=== PATIENT | female | born 1975 | race Caucasian/White ===

== ENCOUNTER → 2017-01-01 | Outpatient (CLI) | payer BC | END | disposition home or self-care (01) | LOC: RADUSWWP 12:31 | PROVIDERS: ATTEND Psychiatry & Neurology Neurology | DX: G57.91 Unspecified mononeuropathy of right lower limb (principal) | CPT/HCPCS: 93923 ==

== ENCOUNTER → 2018-08-25 | Outpatient (CLI) | payer BC ==
--- NOTE | 2018-08-25 11:28 | MM ---
Reason for exam: screening (asymptomatic). Last mammogram was performed 2 years and 9 months ago. History: Family history of breast cancer in sister at age 50 and breast cancer in mother at age 40. Physical Findings: A clinical breast exam by your physician is recommended on an annual basis and results should be correlated with mammographic findings. MG 3D Screening Mammo W/Cad Bilateral CC and MLO view(s) were taken. Prior study comparison: December 05, 2015, bilateral MG 3d diag mammo w/cad [place]. The breast tissue is extremely dense which could obscure a lesion on mammography. Finding: There is a 9 mm circumscribed round mass located 5 cm from the nipple in the upper outer quadrant, middle position of the left breast, probable new cyst but needs ultrasound. There is a chronic nodularity bilaterally, known cyst 2016 ultrasound. ASSESSMENT: Incomplete: need additional imaging evaluation, BI-RAD 0 RECOMMENDATION: Ultrasound of the left breast. [facility] will attempt to contact patient to return for ultrasound.
== END | disposition home or self-care (01) ==
LOC: RADMAMWWP 06:54
PROVIDERS: ATTEND Family Medicine
DX: Z12.31 Encounter for screening mammogram for malignant neoplasm of breast (principal)
CPT/HCPCS: 77063; 77067

== ENCOUNTER → 2018-08-27 | Outpatient (CLI) | payer BC ==
--- NOTE | 2018-08-27 08:43 | USB ---
Reason for exam: additional evaluation requested from abnormal screening. History: Family history of breast cancer in sister at age 50 and breast cancer in mother at age 40. Physical Findings: Nurse did not find any significant physical abnormalities on exam. US Breast Workup Limited LT Left limited breast ultrasound including focal area of concern, retroareolar and axilla demonstrates a 1.0 x 0.5 x 0.5cm cystic cluster at 1 o'clock and a 0.8 x 0.4 x 1.0cm cystic lesion at 2 o'clock. These results were verbally communicated with the patient and result sheet given to the patient on 08/27/18. ASSESSMENT: Benign, BI-RAD 2 RECOMMENDATION: Return to routine screening mammogram schedule for both breasts.
== END ==
LOC: RADUSWWP 07:33
PROVIDERS: ATTEND Family Medicine
DX: R92.8 Other abnormal and inconclusive findings on diagnostic imaging of breast (principal)

== ENCOUNTER → 2021-01-16 | Outpatient (CLI) | payer BC ==
--- NOTE | 2021-01-16 10:08 | US ---
EXAMINATION TYPE: US renal artery duplex complete DATE OF EXAM: 01/16/2021 COMPARISON: NONE CLINICAL HISTORY: I70.1 renal artery stenosis. MEASUREMENTS: RENAL SIZE: Rt Kidney: 11.0 x 5.1 x 6.6 cm Lt Kidney: 10.0 x 5.3 x 5.6 cm RESISTANCE INDEX Right: 0.60 Left: 0.57 RA/AO RATIO (< 3.5 ) Right: 2.1 Left: 2.7 RA VELOCITY ( < 180 cm/s) Right: 174 Left: 220 Aorta and renal unremarkable. Mildly elevated left renal artery velocity. Good upstroke on segmentals at renal hilum. IMPRESSION: 1. Renal arterial system as visualized appears unremarkable. Velocities however are somewhat elevated , more so on the left. Consider additional evaluation such as with MRA to evaluate for left renal art debi stenosis.
== END | disposition home or self-care (01) ==
LOC: RADUSWWP 08:30
PROVIDERS: ATTEND Family Medicine
DX: I70.1 Atherosclerosis of renal artery (principal)
CPT/HCPCS: 93975

== ENCOUNTER → 2021-12-24 | Outpatient (CLI) | payer BC ==
--- NOTE | 2021-12-25 15:31 | MM ---
Reason for Exam: Screening (asymptomatic). Last mammogram was performed 3 year(s) and 4 month(s) ago. Patient History: Menarche at age 11. First Full-Term at age 16. Sister had breast cancer, age 50. Mother had breast cancer, age 40. Last menstrual period: 12/13/2021 Risk Values: Nany 5 year model risk: 4.4%. NCI Lifetime model risk: 36.8%. Prior Study Comparison: 12/05/2015 Bilateral Diagnostic Mammogram, [facility]. 08/25/2018 Bilateral Screening Mammogram, [facility]. Tissue Density: The breast tissue is heterogeneously dense. This may lower the sensitivity of mammography. Findings: Analyzed By CAD. There is no suspicious group of microcalcifications or new suspicious mass in either breast. Overall Assessment: Negative, BI-RAD 1 Management: Screening Mammogram of both breasts in 1 year. A clinical breast exam by your physician is recommended on an annual basis and results should be correlated with mammographic findings. Electronically signed and approved by: Aldo Jeffries DO
== END | disposition home or self-care (01) ==
LOC: RADMAMWWP 08:01
PROVIDERS: ATTEND Obstetrics & Gynecology Obstetrics
DX: Z12.31 Encounter for screening mammogram for malignant neoplasm of breast (principal); Z80.3 Family history of malignant neoplasm of breast
CPT/HCPCS: 77063; 77067

== ENCOUNTER → 2022-01-03 | Outpatient (CLI) | payer BC ==
[2022-01-03 22:54] LABS: Basophils # (A) 0.08 X 10*3/uL (0.00-0.10); Basophils % (A) 0.7 %; Eosinophils # (A) 0.17 X 10*3/uL (0.04-0.35); Eosinophils % (A) 1.6 %; HCT 43.6 % (37.2-46.3); Immature Grans, Automated 0.5 %; Lymphocytes # (A) 2.64 X 10*3/uL (0.90-5.00); Lymphocytes % (A) 24.4 %; MCH 28.9 pg (27.0-32.0); MCHC 32.1 g/dL (32.0-37.0); MCV 89.9 fL (80.0-97.0); Mean Platelet Volume 9.9 fL (9.5-12.2); Monocytes # (A) 0.78 X 10*3/uL (0.20-1.00); Monocytes % (A) 7.2 %; NRBC Per 100 WBC 0 /100 WBCS (0.0-0.0); Neutrophils # (A) 7.12 X 10*3/uL (1.80-7.70); Neutrophils % (A) 65.6 %; Platelet Count 331 X 10*3/uL (140-440); RBC 4.85 X 10*6/uL (4.10-5.20); WBC 10.84 X 10*3/uL (4.50-10.00)
== END | disposition home or self-care (01) ==
LOC: LABPAT 13:40
PROVIDERS: ATTEND Obstetrics & Gynecology Obstetrics
DX: Z01.818 Encounter for other preprocedural examination (principal); N92.0 Excessive and frequent menstruation with regular cycle
CPT/HCPCS: 85025; 93005

== ENCOUNTER 2022-01-20 09:40 | Day surgery (SDC) | payer BC ==
[2022-01-16 15:57] VITALS: BMI 23.0
[~2022-01-20 09:40] MED LIST: DEXAMETHASONE SOD PHOSPHATE 4 MG/ML 1 ML VIAL IV ONE; HYDROmorphone 0.5 MG/0.5 ML SYRINGE IVP PRN; LACTATED RINGERS 1,000 ML IV SCH; LIDOCAINE 1% (10MG/ML) FOR IV START INTRADERMA PRN; ONDANSETRON 4 MG/2 ML VIAL IVP ONE; Pre Op ABX Message 1 EACH MISC MISCELLANE ONE; SCOPOLAMINE 1 MG/72 HR PATCH TRANSDERM ONE
[2022-01-20] MEDS ORDERED: PROPOFOL 10 MG/ML 20 ML VIAL IV ONE (12:04)
[2022-01-20] MEDS ORDERED: fentaNYL (PF) 50 MCG/ML 2 ML AMP ONE (12:04)
[2022-01-20] MEDS ORDERED: LIDOCAINE 2% INJ 20 MG/ML (2 ML VIAL) ONE (12:04)
[2022-01-20] MEDS ORDERED: KETOROLAC 15 MG/ML 1 ML VIAL ONE (12:04)
[2022-01-20] MEDS ORDERED: MIDAZOLAM 2 MG/2 ML VIAL ONE (12:04)
[2022-01-20] MEDS ORDERED: SILVER NITRATE APPLICATOR 1 EACH STICK..EA. TOPICAL ONE (12:48)
--- NOTE | 2022-01-20 13:00 | P.OP ---
Date of Procedure: 01/20/22 Preoperative Diagnosis: Heavy menstrual bleeding Postoperative Diagnosis: Same Procedure(s) Performed: Hysteroscopy, dilation and curettage, failed endometrial ablation secondary to cavity size Anesthesia: MAC Surgeon: Alem Richard Estimated Blood Loss (ml): 5 IV fluids (ml): 600 Urine output (ml): 100 Pathology: other (Endometrial curettings) Condition: stable Disposition: PACU Indications for Procedure: Heavy menstrual bleeding on Plavix Operative Findings: Significant cervical stenosis is appreciated, uterine cavity was noted to have filmy adhesions suspicious for Asherman syndrome, when placing the NovaSure device unable to open the device to the recommended width. Uterine length 7 cm, upon insertion of the NovaSure device the placement revealed with of 1.5 cm, unable to proceed with the procedure secondary to small uterine window. Description of Procedure: Patient was taken back to separate suite where general anesthesia was obtained without difficulty by the anesthesia department. She was prepped and draped in the normal sterile fashion in the dorsal lithotomy position. A red rubber catheter was used to drain the bladder of clear yellow urine. A weighted speculum was placed in the posterior vaginal vault the anterior lip of the cervix is visualized and grasped with single-tooth tenaculum. The endocervical canal was then serially dilated with some difficulty, significant stenosis was appreciated. The hysteroscope was placed through the cervix and toward the endometrial cavity the cavity was noted to be intact and small. Gentle curettage was attempted with difficulty of placement of the curette. Additional dilation was performed. Once again the cavity was noted to be intact. Hysteroscope was placed multiple times throughout the procedure to ensure intact cavity. Upon visualization of the cavity small uterine width was appreciated. The NovaSure device was opened and attempted to be placed. Placement was noted into the uterus, width was noted to be small and I was unable to deploy the NovaSure device. NovaSure procedure was aborted. The single-tooth tenaculum was taken off of the anterior lip of the cervix hemostasis was appreciated, after application of silver nitrate stick on 1 tenaculum site. All counts were noted be correct 2 at the end of the procedure. Patient did tolerate procedure well and was taken the recovery room awake in stable condition.
[2022-01-20 13:02] VITALS: TEMP 96.8
[2022-01-20 13:49] VITALS: RESP 16
[2022-01-20] MEDS ORDERED: LACTATED RINGERS 1,000 ML IV ONE (13:49)
[2022-01-20] MEDS ORDERED: ACETAMINOPHEN TAB 500 MG TAB PO ONE (14:05)
[2022-01-20] MEDS ORDERED: ACETAMINOPHEN TAB 500 MG TAB ONE (14:06)
[2022-01-20 14:35] VITALS: BP 145/82; PULSE 60
== END 2022-01-20 14:51 | disposition home or self-care (01) ==
LOC: OR 09:40
PROVIDERS: ATTEND Obstetrics & Gynecology Obstetrics
DX: N92.0 Excessive and frequent menstruation with regular cycle (principal); I10 Essential (primary) hypertension; E78.5 Hyperlipidemia, unspecified; F17.210 Nicotine dependence, cigarettes, uncomplicated; G45.9 Transient cerebral ischemic attack, unspecified; Z88.8 Allergy status to other drugs, medicaments and biological substances; Z88.7 Allergy status to serum and vaccine; Z79.899 Other long term (current) drug therapy
CPT/HCPCS: 81025; 88305; 58558; J2250; J1100; J2405; J3010; J1885; J2704; J2001

== ENCOUNTER → 2022-03-17 | Outpatient (CLI) | payer BC ==
[2022-03-17 15:19] LABS: Basophils # (A) 0.05 X 10*3/uL (0.00-0.10); Basophils % (A) 0.5 %; Eosinophils # (A) 0.17 X 10*3/uL (0.04-0.35); Eosinophils % (A) 1.7 %; HCT 42.7 % (37.2-46.3); HGB 14.1 g/dL (12.0-15.0); Immature Grans, Automated 0.5 %; Lymphocytes # (A) 1.57 X 10*3/uL (0.90-5.00); Lymphocytes % (A) 15.6 %; MCH 29.8 pg (27.0-32.0); MCV 90.3 fL (80.0-97.0); Mean Platelet Volume 10.5 fL (9.5-12.2); Monocytes # (A) 0.66 X 10*3/uL (0.20-1.00); Monocytes % (A) 6.5 %; NRBC Per 100 WBC 0 /100 WBCS (0.0-0.0); Neutrophils # (A) 7.59 X 10*3/uL (1.80-7.70); Neutrophils % (A) 75.2 %; Platelet Count 337 X 10*3/uL (140-440); RBC 4.73 X 10*6/uL (4.10-5.20); RDW 14.7 % (11.5-14.5); WBC 10.09 X 10*3/uL (4.50-10.00)
[2022-03-17 15:30] LABS: African American GFR (CKD) 124.9 (60.0-200.0); Anion Gap 9.9 mmol/L (10.00-18.00); Blood Urea Nitrogen 8.1 mg/dL (9.0-27.0); Carbon Dioxide 24.1 mmol/L (20.0-27.5); Non-African American GFR(CKD) 107.8 (60.0-200.0)
== END | disposition home or self-care (01) ==
LOC: LABPAT 09:32
PROVIDERS: ATTEND Obstetrics & Gynecology Obstetrics
DX: Z01.812 Encounter for preprocedural laboratory examination (principal); N92.0 Excessive and frequent menstruation with regular cycle
CPT/HCPCS: 80051; 82565; 82947; 84520; 85025; 87086

== ENCOUNTER 2022-03-24 07:14 | Day surgery (SDC) | payer BC ==
[~2022-03-24 07:14] MED LIST changes: +ACETAMINOPHEN IV (For NPO) 1,000 MG in EMPTY BAG 1 BAG IVPB PRN; -DEXAMETHASONE SOD PHOSPHATE 4 MG/ML 1 ML VIAL IV ONE; -HYDROmorphone 0.5 MG/0.5 ML SYRINGE IVP PRN; -LACTATED RINGERS 1,000 ML IV SCH; -LIDOCAINE 1% (10MG/ML) FOR IV START INTRADERMA PRN; -ONDANSETRON 4 MG/2 ML VIAL IVP ONE; -Pre Op ABX Message 1 EACH MISC MISCELLANE ONE; -SCOPOLAMINE 1 MG/72 HR PATCH TRANSDERM ONE
--- NOTE | 2022-03-24 08:04 | P.HPOB ---
History of Present Illness H&P Date: 03/24/22 Chief Complaint: heavy menstrual bleeding, failed medical management, failed ablation 46-year-old non female that presented on 1009 for scheduled endometrial ablation. 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 Patient has consisted concerns about irregular heavy menstrual bleeding and is frustrated as she continues to bleed. Patient desires definitive treatment given failed endometrial ablation. Patient is on Plavix and talked to cardiology for clearance and instructions. Review of Systems Constitutional: Reports fatigue, Denies chills, Denies fever Ears, nose, mouth and throat: Denies headache Cardiovascular: Denies leg edema Respiratory: Denies dyspnea Gastrointestinal: Denies nausea, Denies vomiting Genitourinary: Reports menorrhagia, Denies Past Medical History Past Medical History: CVA/TIA, Hyperlipidemia, Hypertension Additional Past Medical History / Comment(s): TIA-SLIGHT FACIAL DROOP LT SIDE more noticable when tired. IRREGULAR/HEAVY MENSES History of Any Multi-Drug Resistant Organisms: None Reported Past Surgical History: Cholecystectomy Additional Past Surgical History / Comment(s): FEM POP BYPASS. 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 COLONOSCOPY-HAD ALLERGIC REACTION TO BOWEL PREP. failed endometrial ablation Past Anesthesia/Blood Transfusion Reactions: Postoperative Nausea & Vomiting (PONV) Smoking Status: Current every day smoker - Past Family History Mother Family Medical History: No Reported History Medications and Allergies Home Medications Medication Instructions Recorded Confirmed Type Clopidogrel [Plavix] 75 mg PO DAILY 01/16/22 03/18/22 History Rosuvastatin [Crestor] 10 mg PO MOWEFR 01/16/22 03/24/22 History lisinopriL [Zestril] 10 mg PO DAILY 01/16/22 03/24/22 History Allergies Allergy/AdvReac Type Severity Reaction Status Date / Time diazepam [From Valium] AdvReac Nausea & Verified 03/18/22 17:38 Vomiting COLONOSCOPY PREP Allergy Unknown Uncoded 03/18/22 17:38 COVRadioFrame VACCINE Allergy Anaphylaxis Uncoded 03/18/22 17:38 Exam Osteopathic Statement: *. No significant issues noted on an osteopathic structural exam other than those noted in the History and Physical/Consult. Vital Signs Temp Pulse Resp BP Pulse Ox 03/24/22 07:38 97.4 F L 82 16 129/79 100 Intake and Output 12/03/0403/24/22 03/24/22 22:59 06:59 14:59 Other: Weight 58.8 kg targeted physical exam is performed in this date and seaman officer a well-nourished well-developed non patient in no acute distress, breathing is nonlabored, heart has a regular rate and rhythm, abdomen is soft and nontender, on genitourinary exam external genitalia is normal on inspection, vaginal mucosa is pink and well rugated cervix is without lesion uterus is 6-7 weeks size and mobile no adnexal masses are appreciated Assessment and Plan (1) Heavy menstrual bleeding Current Visit: Yes Status: Acute Code(s): N92.0 - EXCESSIVE AND FREQUENT MENSTRUATION WITH REGULAR CYCLE SNOMED Code(s): 672334895 Plan: 46-year-old non patient that presents for robotic cyst vaginal hysterectomy bilateral salpingectomy, diagnostic cystoscopy. Possible bilateral salpingo-oophorectomy, possible open. Patient has a history of a CVA and is on Plavix. Patient did discuss with cardiology instructions for discontinuation and restarting her Plavix. Clearance from cardiology was obtained prior to this as well. Patient is counseled on risks of surgery including but not limited to infection, bleeding, damage to bladder, bowel, ureteric injury. Patient states understanding and wishes to proceed. Patient was taken to the operating suite.
[2022-03-24] MEDS ORDERED: ONDANSETRON 4 MG/2 ML VIAL ONE (08:05)
[2022-03-24] MEDS ORDERED: LACTATED RINGERS 1,000 ML IV SCH (08:15)
[2022-03-24] MEDS ORDERED: SCOPOLAMINE 1 MG/72 HR PATCH TRANSDERM ONE (08:15)
[2022-03-24] MEDS ORDERED: DEXAMETHASONE SOD PHOSPHATE 4 MG/ML 1 ML VIAL IV ONE (08:15)
[2022-03-24] MEDS ORDERED: HYDROmorphone 0.5 MG/0.5 ML SYRINGE IVP PRN ×2 (08:15→08:28)
[2022-03-24] MEDS ORDERED: ONDANSETRON 4 MG/2 ML VIAL IVP ONE (08:15)
[2022-03-24] MEDS ORDERED: MIDAZOLAM 2 MG/2 ML VIAL IVP ONE (08:18)
[2022-03-24] MEDS ORDERED: LACTATED RINGERS 1,000 ML IV ONE ×2 (08:25→10:22)
[2022-03-24] MEDS ORDERED: DEXAMETHASONE SOD PHOSPHATE 4 MG/ML 1 ML VIAL IVP ONE (08:26)
[2022-03-24] MEDS ORDERED: NALOXONE 0.4 MG/ML 1 ML VIAL IV PRN (08:28)
[2022-03-24] MEDS ORDERED: ONDANSETRON 4 MG/2 ML VIAL IVP PRN (08:28)
[2022-03-24] MEDS ORDERED: NALBUPHINE 10 MG/ML (1 ML AMP) IV PRN (08:28)
[2022-03-24] MEDS ORDERED: diphenhydrAMINE 50 MG/ML 1 ML VIAL IVP PRN (08:28)
[2022-03-24] MEDS ORDERED: KETOROLAC 15 MG/ML 1 ML VIAL IVP PRN (08:28)
--- NOTE | 2022-03-24 08:28 | P.ANPRN ---
Procedure Note - Anesthesia - Epidural/Spinal Spinal Time Out Performed: Yes Date of Procedure: 03/24/22 Procedure Start Time: :17 Procedure Stop Time: :24 Location of Patient: PreOp Indication: Acute Post-Operative Pain, Requested by Surgeon (st daniel) Sedation Type: Sedate with meaningful contact maintained Preparation: Sterile Prep Position: Sitting Needle Guage: 25 Blood Aspirated: No Pain Paresthesia on Injection Noted: No Events: Uneventful and Well Tolerated (fentanyl 25 mcg +300 mcg duramorph injected intrathecally)
[2022-03-24] MEDS ORDERED: BUPIVACAINE (PF) 0.25% 30 ML VIAL SQ ONE (09:53)
[2022-03-24] MEDS ORDERED: Acetaminophen-Codeine 300-30mg TAB PO PRN ×2 (11:28)
[2022-03-24] MEDS ORDERED: SIMETHICONE 80 MG CHEWABLE PO PRN (11:28)
--- NOTE | 2022-03-24 11:28 | P.OP ---
Date of Procedure: 03/24/22 Preoperative Diagnosis: Heavy menstrual bleeding, failed medical treatment, failed ablation Postoperative Diagnosis: Same plus pelvic congestion syndrome Procedure(s) Performed: Robotic-assisted vaginal hysterectomy, bilateral salpingectomy, diagnostic cys toscopy Anesthesia: SHERI Surgeon: Alem Richard Medical Research Scientist #1: Melany Layton Estimated Blood Loss (ml): 50 IV fluids (ml): 1,000 Urine output (ml): 100 Pathology: other (Uterus cervix bilateral fallopian tubes) Condition: stable Disposition: PACU Indications for Procedure: Heavy menstrual bleeding with failed medical treatment, attempted ablation failed procedure. Operative Findings: Globular uterus with suspicion for pelvic congestion Description of Procedure: Patient was taken back to the operating suite where general anesthesia was obtained without difficulty by the anesthesia department. She is prepped and draped in normal sterile fashion in the dorsal lithotomy position. Barba catheter sterile technique. A weighted speculum was placed the posterior vaginal vault the anterior lip of the cervix is visualized and grasped with a single-tooth tenaculum. Endocervical canal was then serially dilated and a [employer] uterine manipulator was placed. All instruments were then removed from the patient's vaginal vault. Attention was then turned the patient's abdomen where approximately 2 finger breaths above the umbilicus a small skin incision is made. Through this incision the various needles placed. Once the Veress needle was deemed to be in the proper position with a drop of CO2 pressure with insufflation of CO2 gas CO2 insufflation was allowed to occur. At this time the above-noted findings were visualized. Additional port sites are now placed at 10 cm lateral and 3 cm inferior midline port these are 8 mm ports and placed under direct visualization. The da Jyoti robot is undocked in usual fashion. The operative ports are now placed in the right operative arm the monopolar scissors is placed in the left operative arm the bipolar forceps is placed attention was then turned to the patient's left fallopian tube which was elevated and mesosalpinx was coagulated and transected this continued through the mesosalpinx toward the uterine ovarian ligament which was coagulated distally and proximally and divided. Hemostasis was appreciated. The round ligament was then coagulated distally and proximally and divided. Hemostasis was noted. The vesicouterine peritoneum was identified and the bladder flap was created using sharp and once dissection. The ascending branch the uterine artery was visualized coagulated and transected. The right fallopian tube was then visualized elevated and the mesosalpinx was coagulated. The utero-ovarian ligament was visualized coagulated distally and proximally and divided. The round ligament was then coagulated and transected. The bladder flap from the right was then created using sharp and blunt dissection. The ascending branch of the uterine artery from the right was then visualized coagulated and transected. Hemostasis was noted. At this time the only remaining attachment was a vaginal attachment therefore colpotomy incision was made in a circumferential fashion. The uterus and bilateral fallopian tubes were then delivered through the vaginal cuff. The pelvis was then copiously irrigated. A small amount of bleeding was noted on the right-hand side of the vaginal cuff cautery was then used to obtain hemostasis. The vaginal cuff was then closed with 0 Vicryl in a [id number]-il-skoyg fashion. Approximate for sutures were used to obtain closure. The pelvis was then irrigated copiously once again hemostasis was noted. Small amount of oozing was noted on the right-hand side of the vaginal cuff therefore Surgicel powder was placed and hemostasis was appreciated. All instruments were then removed from the patient's abdomen. The da Jyoti robot was undocked in usual fashion. Attention turned the patient's Barba catheter which was removed without difficulty clear yellow urine was noted in the tubing at the time of removal. A cystoscopy was performed. Cystoscope was placed through the urethra and toward the bladder bladder bubble was appreciated. Both ureteral orifices noted to be spilling clear yellow urine. The cystoscope was removed and the Barba catheter was replaced. Attention turned the patient's abdomen where the skin incisions were closed with 4-0 Vicryl in a subcuticular fashion. Steri-Strips and sterile dressings were applied. All counts were noted be correct 2 at the end of the procedure. Patient tolerated procedure well and was taken the recovery room awake in stable condition.
[2022-03-24] MEDS ORDERED: IBUPROFEN IV 800 MG in SODIUM CHLORIDE 0.9% 250 ML IV ONE (12:30)
[2022-03-24 13:48] VITALS: RESP 16
[2022-03-24] MEDS: ACETAMINOPHEN TAB 325 MG TAB PO PRN (20:53)
[2022-03-24] MEDS: IBUPROFEN 600 MG TAB PO PRN (23:38)
[2022-03-25] MEDS: ACETAMINOPHEN TAB 325 MG TAB PO PRN (04:09)
[2022-03-25] MEDS: IBUPROFEN 600 MG TAB PO PRN (07:00)
[2022-03-25 07:06] LABS: Basophils % (A) 0 %; Eosinophils # (A) 0.1 k/uL (0-0.7); Eosinophils % (A) 1 %; HCT 36.6 % (34.0-46.0); HGB 12.3 gm/dL (11.4-16.0); Lymphocytes # (A) 2.4 k/uL (1.0-4.8); Lymphocytes % (A) 22 %; MCH 30.5 pg (25.0-35.0); MCHC 33.5 g/dL (31.0-37.0); MCV 91.2 fL (80.0-100.0); Mean Platelet Volume 7.8; Monocytes # (A) 0.5 k/uL (0-1.0); Monocytes % (A) 5 %; Neutrophils # (A) 7.9 k/uL (1.3-7.7); Neutrophils % (A) 71 %; Platelet Count 249 k/uL (150-450); RBC 4.02 m/uL (3.80-5.40); RDW 13.4 % (11.5-15.5); WBC 11.1 k/uL (3.8-10.6)
--- NOTE | 2022-03-25 07:20 | P.PN ---
Progress Note - Text Date: 03/25/2022 Time: 06:56 The patient is status post, vaginal hysterectomy. Vital signs stable VAS: 0-1-10 Patient has no complaints of pain. The patient incurred some minimal itching yesterday, this itching is now subsiding. Pain meds to be managed by service.
[2022-03-25 08:23] VITALS: BP 137/73; PULSE 55; TEMP 98
--- NOTE | 2022-03-25 10:34 | P.DS ---
Providers Date of admission: 03/24/2022 Expected date of discharge: 03/25/22 Attending physician: Alem Richard Primary care physician: Clair Prado - Discharge Diagnosis(es) (1) Heavy menstrual bleeding Current Visit: Yes Status: Acute (2) S/P hysterectomy Current Visit: Yes Status: Acute Hospital Course: 46-year-old patient presented to the hospital yesterday on 03/24 for scheduled robotic cyst vaginal hysterectomy, bilateral salpingectomy, diagnostic cystoscopy. Patient had history of heavy menstrual bleeding with failed medical and attempted ablation. Patient wished definitive treatment given her heavy menstrual bleeding. Patient has a history of a CVA and has been on Plavix in addition. Patient did receive medical/cardiology clearance from Dr. An prior to surgery. Plavix has been held until tomorrow. Patient will restart per Dr. Light instructions. Patient was taken back to the operating suite where surgery was performed without difficulty. For full details on the surgery please see the dictated operative report. Patient's postoperative course has been uneventful. On this postoperative day #1 she is ambulating and voiding without difficulty. She is tolerating a regular diet without nausea or vomiting. She states her pain is well-controlled. She is noting some gas pain and instructions for relief of this discomfort are reviewed. She notes scant vaginal bleeding. She would like discharge home. Patient Condition at Discharge: Good Plan - Discharge Summary Discharge Rx Participant: Yes New Discharge Prescriptions: No Action lisinopriL [Zestril] 10 mg PO DAILY Clopidogrel [Plavix] 75 mg PO DAILY Rosuvastatin [Crestor] 10 mg PO MOWEFR Discharge Medication List Clopidogrel [Plavix] 75 mg PO DAILY 01/16/22 [History] Rosuvastatin [Crestor] 10 mg PO MOWEFR 01/16/22 [History] lisinopriL [Zestril] 10 mg PO DAILY 01/16/22 [History] Follow up Appointment(s)/Referral(s): Alem Richard DO [Doctor of Osteopathic Medicine] - 2 Weeks Patient Instructions/Handouts: Laparoscopic Hysterectomy (DC), Laparoscopic Hysterectomy (GEN) Activity/Diet/Wound Care/Special Instructions: patient can expect vaginal spotting to a slight flow. Patient is urged to use clkq-nju-oizygek ibuprofen sparingly given her Plavix dosing. She will be given a prescription for Tylenol No. 3 to be used as needed for discomfort at home. Patient is encouraged to use simethicone for gas pain and relief of those symptoms. Pxjp-scc-ulntkos senna S for constipation symptoms in addition. no tub baths or intercourse until released by myself. Discharge Disposition: HOME SELF-CARE
[2022-03-25] MEDS ORDERED: ACETAMINOPHEN TAB 325 MG TAB PO PRN (11:28)
== END 2022-03-25 11:55 | disposition home or self-care (01) ==
LOC: OR 07:14 → 4FBP 11:08 → OR 03-25 11:55
PROVIDERS: ATTEND Obstetrics & Gynecology Obstetrics
DX: D25.1 Intramural leiomyoma of uterus (principal); N72 Inflammatory disease of cervix uteri; N80.03 Adenomyosis of the uterus; N94.89 Other specified conditions associated with female genital organs and menstrual cycle; E78.5 Hyperlipidemia, unspecified; I10 Essential (primary) hypertension; K91.0 Vomiting following gastrointestinal surgery; Z86.73 Personal history of transient ischemic attack (TIA), and cerebral infarction without residual deficits; Z90.49 Acquired absence of other specified parts of digestive tract; F17.200 Nicotine dependence, unspecified, uncomplicated; Z79.899 Other long term (current) drug therapy; Z88.8 Allergy status to other drugs, medicaments and biological substances; Z88.7 Allergy status to serum and vaccine
CPT/HCPCS: 58552; 81025; 86900; 86901; 85025; 86850; 88307; J2250; J1200; J1100; J0690; J2405; J0131; J1885; J1741; J1170

== ENCOUNTER → 2023-09-09 | Outpatient (CLI) | payer OTHER ==
--- NOTE | 2023-09-14 11:09 | MR ---
EXAMINATION TYPE: MR angio head wo con DATE OF EXAM: 09/09/2023 COMPARISON: None HISTORY: Hemiplegia, history of TIA. Episodes of headaches when blood pressure shoots up. CONTRAST: None TECHNIQUE: Multiplanar multiecho imaging on a 3.0 Millicent magnet is performed through the redding of Gregory lis. 3-D [id number] imaging is performed. Source images are reviewed on the computer in the axi al plane. Reconstructed images rotating on the computer are reviewed. FINDINGS: The internal carotid arteries bifurcate normally into A1 and M1 segments. The A2 segments are normal. Middle cerebral artery branches are normal. Ophthalmic arteries are patent. Anterior communicating artery is small but patent. The right posterior communicating artery is patent. The left posterior communicating artery is patent. Vertebrobasilar arteries within the wnxgu-uy-rbuu are normal. Posterior cerebral vasculature is norm al. No suspicious aneurysm or aneurysmal dilatation is evident. No obstructions are identified. No significant flow-limiting stenosis is evident. IMPRESSION: 1. NORMAL MRA MARSHALL OF HAIRSTON.
--- NOTE | 2023-09-14 11:12 | MR ---
EXAMINATION TYPE: MR brain wo/w con DATE OF EXAM: 09/09/2023 COMPARISON: None HISTORY: Hemiplegia, history of TIA. Episodes of headaches when blood pressure shoots up. CONTRAST: Performed utilizing 6.5 mL intravenous Gadavist gadolinium contrast. TECHNIQUE: Multiplanar, multiecho imaging on a 3.0 Millicent magnet is performed through the brain. Stud y is performed within 24 hours of arrival to the hospital. The craniovertebral junction is normal. The pituitary is normal. Diffusion-weighted imaging is performed. No abnormal hyperintensity is present to suggest an acute i ntracranial infarct or acute ischemic change. There are scattered punctate areas of hyperintensity on T2 and Inversion Recovery weighted sequences which are non-specific but can be related to microvascular ischemic changes. Ventricles and sulci are appropriate for the patient age. No abnormal enhancement is evident. Some mild mucosal thickening is through ethmoid air cells. IMPRESSION: 1. No discrete abnormality pre or post contrast MRI brain. 2. Mild mucosal thickening through scattered ethmoid air cells.
== END | disposition home or self-care (01) ==
LOC: RADMRIMAIN 21:30
PROVIDERS: ATTEND Family Medicine
DX: G81.90 Hemiplegia, unspecified affecting unspecified side (principal); J34.89 Other specified disorders of nose and nasal sinuses; R51.9 Headache, unspecified; Z86.73 Personal history of transient ischemic attack (TIA), and cerebral infarction without residual deficits
CPT/HCPCS: 70544; 70553; A9585